=== PATIENT | female | born 1955 | race Caucasian/White ===

== ENCOUNTER 2017-06-09 22:29 | Emergency (ER) | payer OTHER ==
[~2017-06-09] VITALS: Ht 157.5 cm; Wt 59.0 kg
[2017-06-09 22:35] VITALS: BP 152/93
[2017-06-09] MEDS ORDERED: OXYCONTIN20 M1 PO (22:41)
[2017-06-09] MEDS ORDERED: VENTOLIN HFA 1818 GM INH (22:52)
[2017-06-09] MEDS ORDERED: OXYCODONE HCL 55 MG PO (22:52)
== END 2017-06-09 22:57 | disposition home or self-care (01) ==
LOC: ER 22:29
DX: Z76.0 Encounter for issue of repeat prescription (principal); E11.40 Type 2 diabetes mellitus with diabetic neuropathy, unspecified; F17.200 Nicotine dependence, unspecified, uncomplicated; Z98.890 Other specified postprocedural states; Z88.0 Allergy status to penicillin

== ENCOUNTER 2017-06-10 05:26 | Emergency (ER) | payer OTHER ==
[~2017-06-10] VITALS: Ht 157.5 cm; Wt 59.0 kg
[~2017-06-10 05:26] MED LIST: OXYCODONE HCL 55 MG PO; OXYCONTIN20 M1 PO; VENTOLIN HFA 1818 GM INH
[2017-06-10 05:50] VITALS: BP 126/84
== END 2017-06-10 05:51 | disposition home or self-care (01) ==
LOC: ER 05:26
DX: R25.1 Tremor, unspecified (principal); E11.40 Type 2 diabetes mellitus with diabetic neuropathy, unspecified; Z98.890 Other specified postprocedural states; Z88.0 Allergy status to penicillin